=== PATIENT | female | born 1990 | race Caucasian/White ===

== ENCOUNTER 2016-07-26 07:19 | Emergency (ER) | payer BC, OTHER ==
[~2016-07-26] VITALS: Ht 154.9 cm; Wt 86.1 kg
[~2016-07-26 07:19] MED LIST: ALBUAER2 INH; ETON1IMP2 INTRAD; FLNIN/ NAE; ONDA4TAB46 PO; OXYC-57 PO
[2016-07-26 07:25] VITALS: TEMP 37.2; Ht 154.9 cm; Wt 86.1 kg
[2016-07-26] MEDS ORDERED: SODIUM CHLORIDE 0.9% 1000ML 1,000 ML IV STA (07:54)
[2016-07-26] MEDS ORDERED: KETOROLAC TROMETHAMINE 30 MG/ML VIAL IV STA (07:54)
[2016-07-26] MEDS ORDERED: ONDANSETRON INJ 2 MG/ML 2 ML VIAL IV STA (07:54)
[2016-07-26] MEDS ORDERED: HYDROmorphone INJ 1 MG/ML SYR IV STA (07:54)
[2016-07-26 08:08] LABS: BASO % 1.2 %; BASO ABS # 0.07 K/uL (0-0.2); COMPLETE YES; EOS % 2.9 %; HEMATOCRIT 41.5 % (37-47); IG% 0.2 %; LYMPH ABS # 2.37 K/uL (1.2-3.4); MEAN CELL VOLUME 88.5 fL (80-100); MEAN CORPUSCULAR HEMOGLOBIN 30.9 pg (25-34); MEAN CORPUSCULAR HGB CONC 34.9 g/dl (32-36); MEAN PLATELET VOLUME 10.1 fL (7.4-10.4); MONO % 5.2 %; NEUT % 50.5 %; PLATELET COUNT 310 K/uL (130-400); RED BLOOD COUNT 4.69 M/uL (4.2-5.4); WHITE BLOOD COUNT 5.93 K/uL (4.8-10.8)
[2016-07-26 08:13] LABS: URINE APPEARANCE CLEAR (CLEAR); URINE BILIRUBIN NEG (NEG); URINE COLOR YELLOW; URINE EPITHELIAL CELL AUTO >30 /lpf (0-5); URINE NITRITE NEG (NEG); URINE PH 6.5 (4.5-7.5); URINE SPECIFIC GRAVITY 1.023 (1.000-1.030); UROBILINOGEN NEG (NEG)
[2016-07-26 08:14] LABS: MANUAL MICROSCOPIC REQUIRED? NO; REVIEW REQ? NO
[2016-07-26] MEDS ORDERED: CEFTRIAXONE SOD INJ 1 GM ADDVIAL IV STA (08:16)
[2016-07-26 08:37] LABS: ALKALINE PHOSPHATASE 64 U/L (45-117); ALT/SGPT 22 U/L (12-78); AST/SGOT 20 U/L (15-37); BLOOD UREA NITROGEN 15 mg/dl (7-18); BUN/CREATININE RATIO 19.9 (10-20); CALCIUM 9.4 mg/dl (8.5-10.1); CARBON DIOXIDE 20 mmol/L (21-32); CHLORIDE 109 mmol/L (98-107); CREATININE 0.75 mg/dl (0.60-1.20); GLUCOSE 91 mg/dl (70-99); POTASSIUM 4.2 mmol/L (3.5-5.1); SODIUM 141 mmol/L (136-145)
--- NOTE | 2016-07-26 08:59 | DIAGNOSTIC IMAGING REPORT ---
KUB CLINICAL HISTORY: Left flank pain COMPARISON STUDY: 10/11/2015 FINDINGS: There is no pathologic bowel dilatation. There is 2 mm calcification projected over the lower pole the left kidney suspicious for a calculus. IMPRESSION: 1. Suspected 2 mm lower pole left renal calculus 2. No evidence of pathologic bowel dilatation Electronically signed by: Manuel Alaniz M.D. 07/26/2016 8:58 AM Dictated Date/Time: 07/26/2016 8:57 AM
--- NOTE | 2016-07-26 09:29 | DIAGNOSTIC IMAGING REPORT ---
EXAMINATION: RENAL ULTRASOUND CLINICAL HISTORY: Left flank pain COMPARISON STUDY: 10/11/2015, KUB dated 07/26/2016 FINDINGS: The right kidney measures 11 cm. The left kidney measures 11.7 cm. There is no evidence of hydronephrosis. No renal masses are visualized. There is a 3 mm echogenic focus within the lower pole of the left kidney suspicious for a calculus. No bladder abnormalities are visualized. Bilateral ureteral jets were visualized. IMPRESSION : Suspected 3 mm lower pole left renal calculus. No evidence of hydronephrosis. Electronically signed by: Manuel Alaniz M.D. 07/26/2016 9:27 AM Dictated Date/Time: 07/26/2016 9:26 AM
[2016-07-26] MEDS ORDERED: CEFTRIAXONE SOD INJ 1 GM ADDVIAL ONE (10:22)
[2016-07-26] MEDS ORDERED: SULF800T23 PO (10:28)
[2016-07-26] MEDS ORDERED: OXYC-57 PO (10:28)
[2016-07-26 12:15] VITALS: BP 114/70; PULSE 65; O2SAT 100
--- NOTE | 2016-07-26 16:13 | EMERGENCY ROOM VISIT NOTE ---
History Report prepared by Puma: Christelle Garza Under the Supervision of: Dr. Alirio Newton M.D. First contact with patient: 07:24 Chief Complaint: ABDOMINAL PAIN Stated Complaint: POSSIBLE APENDICITIS/INFECTION,BLEEDING Nursing Triage Summary: Pt c/o lower abd pain that began on left and is now to the right. "occasional nausea, slight diarrhea, no vomiting" Pt also states she has vaginal bleeding "brown tinges" and doesn't believe it's her period because she has the Nexplonon and last period was in January. States bleeding only comes with the cramping pain in her abdomen. Symptoms x 1 week. History of Present Illness The patient is a 25 year old female who presents to the Emergency Room with complaints of persistent pain to her lower left abdominal quadrant over the past week. Currently, she rates her discomfort as a 6/10, which increases with palpation of the area. Since the time of onset, the patient's pain has intermittently radiated across to her periumbilical region, as well as her lower right abdominal quadrant, but the pain has most persistently been in her lower left quadrant. She also notes becoming intermittently nauseous and has passed a few movements of diarrhea, but she denies fevers, chills, dysuria, hematuria, increased urgency/frequency of urination, hematochezia, or melena. She also denies chest pain or feeling short of breath. Patient states that she began having brown tinged vaginal spotting over the past 2 days, which is not normal for her as she currently has a Nexplanon implant, and her last LNMP was in January. Patient also notes discomfort to her left flank. She does have history of kidney stones but she states that her symptoms over this past week have not been consistent with what she experienced at that time. Source of History: patient Onset: over the past week Position: abdomen (LLQ) Symptom Intensity: 6/10 Timing: other (persistent) Modifying Factors (Worsening): other (palpation) Associated Symptoms: + abdominal pain, + diarrhea, + nausea, No SOB, No chest pain, No chills, No fevers, No hematochezia, No melena, No urinary symptoms, No vomiting Note: Patient has had brown tinged vaginal spotting x 2 days. Review of Systems See HPI for pertinent positives & negatives. A total of 10 systems reviewed and were otherwise negative. Past Medical & Surgical Medical Problems: (1) Asthma (2) CALCULUS OF KIDNEY (3) OVARIAN CYST NEC/NOS (4) Pneumonia (5) PNEUMONIA, ORGANISM NOS Family History Heart disease Social History Smoking Status: Never Smoker Alcohol Use: occasionally Drug Use: none Marital Status: single Housing Status: lives with family Occupation Status: employed Current/Historical Medications Scheduled Etonogestrel (Nexplanon), 68 MG INTRAD UD Sulfa/Trimethoprim (Bactrim Ds 800MG/160MG), 1 TAB PO BID Scheduled PRN Albuterol (Ventolin Hfa), 2 PUFFS INH Q4H PRN for Shortness of Breath Fluticasone Propionate (Fluticasone Propionate), 1 SPRAY RITA DAILY PRN for Allergies Ondansetron Hcl (Zofran), 4 MG PO PRN UD PRN for Nausea Oxycodone/Acetaminophen 5MG/325MG (Percocet 5MG/325MG), 1 TABLET PO PRN UD PRN for Pain Oxycodone/Acetaminophen 5MG/325MG (Percocet 5MG/325MG), 1-2 TAB PO Q4H PRN for Pain Allergies Coded Allergies: Latex1 -Allergic Contact Dermititis (Verified Allergy, Mild, RASH, 07/26/16 ) ITCHING Physical Exam Vital Signs Date Time Temp Pulse Resp B/P Pulse Ox O2 Delivery O2 Flow Rate FiO2 07/26/16 12:15 65 14 114/70 100 07/26/16 09:57 76 14 120/80 95 Room Air 07/26/16 08:30 85 16 100/59 98 Room Air 07/26/16 07:25 37.2 88 17 104/67 97 Room Air Physical Exam GENERAL: Patient is a healthy-appearing well-nourished 25 year old female. No acute distress. HEAD: Normocephalic atraumatic EYES: Ocular movements intact pupils equal and react to light OROPHARYNX mucous membranes are moist no exudates present no erythema or edema present NECK: Supple no nuchal rigidity CHEST: Good equal expansion LUNGS: Clear and equal to auscultation CARDIAC: Normal S1 and S2 ABDOMEN: Tender to palpation of the left lower quadrant. PELVIC: Brown discharge in the vaginal vault. No evidence of chandelier sign. No evidence of tears or abrasions. Mild adnexal tenderness. BACK: No CVA tenderness EXTREMITIES: No pain upon palpation normal muscle strength in all groups no clubbing cyanosis or edema NEURO: Patient is following commands is answering questions appropriately. Alert and oriented x3 Cranial Nerves 2-12 grossly intact Medical Decision & Procedures ER Provider Diagnostic Interpretation: US results as stated below per my review and radiologist interpretation: X-ray results as stated below per interpretation by me and the radiologist: EXAMINATION: RENAL ULTRASOUND CLINICAL HISTORY: Left flank pain COMPARISON STUDY: 10/11/2015, KUB dated 07/26/2016 FINDINGS: The right kidney measures 11 cm. The left kidney measures 11.7 cm. There is no evidence of hydronephrosis. No renal masses are visualized. There is a 3 mm echogenic focus within the lower pole of the left kidney suspicious for a calculus. No bladder abnormalities are visualized. Bilateral ureteral jets were visualized. IMPRESSION : Suspected 3 mm lower pole left renal calculus. No evidence of hydronephrosis. Electronically signed by: Manuel Alaniz M.D. 07/26/2016 9:27 AM Dictated Date/Time: 07/26/2016 9:26 AM KUB CLINICAL HISTORY: Left flank pain COMPARISON STUDY: 10/11/2015 FINDINGS: There is no pathologic bowel dilatation. There is 2 mm calcification projected over the lower pole the left kidney suspicious for a calculus. IMPRESSION: 1. Suspected 2 mm lower pole left renal calculus 2. No evidence of pathologic bowel dilatation Electronically signed by: Manuel Alaniz M.D. 07/26/2016 8:58 AM Dictated Date/Time: 07/26/2016 8:57 AM Laboratory Results 07/26/16 07:50 Red Blood Count 4.69, Mean Corpuscular Volume 88.5, Mean Corpuscular Hemoglobin 30.9, Mean Corpuscular Hemoglobin Concent 34.9, Mean Platelet Volume 10.1, Neutrophils (%) (Auto) 50.5, Lymphocytes (%) (Auto) 40.0, Monocytes (%) (Auto) 5.2, Eosinophils (%) (Auto) 2.9, Basophils (%) (Auto) 1.2, Neutrophils # (Auto) 3.00, Lymphocytes # (Auto) 2.37, Monocytes # (Auto) 0.31, Eosinophils # (Auto) 0.17, Basophils # (Auto) 0.07 07/26/16 07:50 Test 07/26/16 07:50 07/26/16 10:18 White Blood Count 5.93 K/uL (4.8-10.8) Red Blood Count 4.69 M/uL (4.2-5.4) Hemoglobin 14.5 g/dL (12.0-16.0) Hematocrit 41.5 % (37-47) Mean Corpuscular Volume 88.5 fL (80-100) Mean Corpuscular Hemoglobin 30.9 pg (25-34) Mean Corpuscular Hemoglobin Concent 34.9 g/dl (32-36) Platelet Count 310 K/uL (130-400) Mean Platelet Volume 10.1 fL (7.4-10.4) Neutrophils (%) (Auto) 50.5 % Lymphocytes (%) (Auto) 40.0 % Monocytes (%) (Auto) 5.2 % Eosinophils (%) (Auto) 2.9 % Basophils (%) (Auto) 1.2 % Neutrophils # (Auto) 3.00 K/uL (1.4-6.5) Lymphocytes # (Auto) 2.37 K/uL (1.2-3.4) Monocytes # (Auto) 0.31 K/uL (0.11-0.59) Eosinophils # (Auto) 0.17 K/uL (0-0.5) Basophils # (Auto) 0.07 K/uL (0-0.2) RDW Standard Deviation 38.7 fL (36.4-46.3) RDW Coefficient of Variation 12.2 % (11.5-14.5) Immature Granulocyte % (Auto) 0.2 % Immature Granulocyte # (Auto) 0.01 K/uL (0.00-0.02) Urine Color YELLOW Urine Appearance CLEAR (CLEAR) Urine pH 6.5 (4.5-7.5) Urine Specific [place] 1.023 (1.000-1.030) Urine Protein NEG (NEG) Urine Glucose (UA) NEG (NEG) Urine Ketones NEG (NEG) Urine Occult Blood 2+ (NEG) Urine Nitrite NEG (NEG) Urine Bilirubin NEG (NEG) Urine Urobilinogen NEG (NEG) Urine Leukocyte Esterase TRACE (NEG) Urine WBC (Auto) 1-5 /hpf (0-5) Urine RBC (Auto) 0-4 /hpf (0-4) Urine Hyaline Casts (Auto) 1-5 /lpf (0-5) Urine Epithelial Cells (Auto) >30 /lpf (0-5) Urine Bacteria (Auto) NEG (NEG) Urine Test NEG (NEG) Anion Gap 12.0 mmol/L (3-11) Est Creatinine Clear Calc Drug Dose 115.2 ml/min Estimated GFR () 129.3 Estimated GFR (Non- 111.6 BUN/Creatinine Ratio 19.9 (10-20) Calcium Level 9.4 mg/dl (8.5-10.1) Total Bilirubin 0.3 mg/dl (0.2-1) Direct Bilirubin mg/dl (0-0.2) Aspartate Amino Transf (AST/SGOT) 20 U/L (15-37) Alanine Aminotransferase (ALT/SGPT) 22 U/L (12-78) Alkaline Phosphatase 64 U/L (45-117) Total Protein 8.0 gm/dl (6.4-8.2) Albumin 4.1 gm/dl (3.4-5.0) Lipase 98 U/L (73-393) Chemistry Specimen Hemolysis Labs reviewed by ED physician. Medications Administered Medications (Trade) Dose Ordered Sig/Romeo Route Start Time Stop Time Status Last Admin Dose Admin Sodium Chloride (Nss 1000ml) 1,000 ml @ 999 mls/hr Q1H1M STAT IV 07/26/16 07:54 07/26/16 08:54 DC 07/26/16 08:18 999 MLS/HR Ketorolac Tromethamine (Toradol Inj) 30 mg NOW STAT IV 07/26/16 07:54 07/26/16 07:56 DC 07/26/16 08:17 30 MG Hydromorphone HCl (Dilaudid Inj) 1 mg NOW STAT IV 07/26/16 07:54 07/26/16 07:56 DC 07/26/16 08:18 1 MG Ondansetron HCl (Zofran Inj) 4 mg NOW STAT IV 07/26/16 07:54 07/26/16 07:56 DC 07/26/16 08:18 4 MG Ceftriaxone Sodium (Rocephin Inj) 1 gm STK-MED ONCE .ROUTE 07/26/16 10:22 07/26/16 10:23 DC 07/26/16 10:25 1 GM ED Course 0730: Past medical records reviewed. The patient was evaluated in room B12. A complete history and physical examination was performed. 0745: Zofran 4 mg IV, Dilaudid 1 mg IV, Toradol 30 mg IV and NSS bolus IV were ordered. 0816: Rocephin 1 gm IV was ordered. 1000: Upon reevaluation, the patient was doing well and appeared to be resting more comfortably after receiving the medications. I discussed the results of her radiology reports and lab tests with her. She agreed to have a pelvic exam. 1010: A pelvic exam was preformed. Patient tolerated this well. 1022: I discussed the results of my findings with the patient. Rocephin 1 gm Route was ordered. Additional discharge instructions were also ordered. She verbalized her understanding and agreement with the treatment plan, and she is now ready for disposition. Medical Decision Etiologies such as appendicitis, diverticulitis, PUD, biliary pathology, UTI, pancreatitis, obstruction, mesenteric ischemia, aortic pathology, infections, inflammatory bowel disease, renal colic, as well as others were entertained. This is a 25-year-old female who presents emergency department complaining of left-sided flank pain. The patient has a very benign abdominal examination. Serial abdominal examinations were performed on the patient in the emergency department and at no time did she exhibit a surgical abdomen. Based on the patient's past medical history as well as where the patient is having pain she was sent for an ultrasound which did not show any evidence of kidney stones. An IV was established, the patient given normal saline bolus, Dilaudid, Toradol , Zofran. Repeat examination revealed improvement patient's symptoms. As we did not have a good expiration the patient's pain the patient did have a pelvic exam performed. This showed bloody discharged. The patient is not . I am going to start the patient on Bactrim for urinary tract infection pending culture results. The patient was also given pain medication for home. Patient was in agreement with the treatment plan. Impression Primary Impression: Left flank pain Scribe Attestation The scribe's documentation has been prepared under my direction and personally reviewed by me in its entirety. I confirm that the note above accurately reflects all work, treatment, procedures, and medical decision making performed by me. Departure Information Dispostion Home / Self-Care Prescriptions Sulfa/Trimethoprim (Bactrim Ds 800MG/160MG) Tab 1 TAB PO BID for 10 Days, #20 TAB Prov: Alirio Newton MD 07/26/16 Oxycodone/Acetaminophen 5MG/325MG (PERCOCET 5MG/325MG) Tab 1-2 TAB PO Q4H Y for Pain, #14 TAB Prov: Alirio Newton MD 07/26/16 Referrals Jose Elias Morillo M.D. (PCP) Forms HOME CARE DOCUMENTATION FORM, IMPORTANT VISIT INFORMATION Patient Instructions My [facility] Additional Instructions You received narcotic or benzodiazepene medication while in the emergency room today. Do not drive, operate heavy machinery, or drink alcohol under the influence of this medication. Take 600 mg Ibuprofen every 6 hours Take Percocet for breakthrough pain Culture results are usually available in approx 48 hours You have been examined and treated today on an emergency basis only. This is not a substitute for, or an effort to provide, complete comprehensive medical care. It is impossible to recognize and treat all injuries or illnesses in a single emergency department visit. It is therefore important that you follow up closely with Dr Morillo. Call as soon as possible for an appointment. Thank you for your time and consideration. I look forward to speaking with you again soon. Please don't hesitate to call us if you have any questions.
[2016-07-28 14:03] LABS: CHLAMYDIA TRACH RNA*** NOT DETECTED (NOT DETECTED); GC (NEIS GONORRHOEAE)RNA** NOT DETECTED (NOT DETECTED)
== END 2016-07-26 12:18 | disposition home or self-care (01) ==
LOC: C.EDB 07:20
DX: R10.32 Left lower quadrant pain (principal); N39.0 Urinary tract infection, site not specified; J45.909 Unspecified asthma, uncomplicated

== ENCOUNTER 2016-08-17 11:36 | Emergency (ER) | payer BC ==
[~2016-08-17] VITALS: Ht 154.9 cm; Wt 86.5 kg
[2016-08-17 11:43] VITALS: TEMP 36.9; Ht 154.9 cm; Wt 86.5 kg
[2016-08-17] MEDS ORDERED: DiphenhydrAMINE HCL 50 MG/ML VIAL IV STA (12:06)
[2016-08-17] MEDS ORDERED: KETOROLAC TROMETHAMINE 30 MG/ML VIAL IV STA (12:06)
[2016-08-17] MEDS ORDERED: SODIUM CHLORIDE 0.9% 1000ML 1,000 ML IV STA ×2 (12:06)
[2016-08-17] MEDS ORDERED: ONDANSETRON INJ 2 MG/ML 2 ML VIAL IV STA (12:06)
[2016-08-17] MEDS ORDERED: PROCHLORPERAZINE 5 MG/ML 2 ML VIAL IV STA (12:06)
[2016-08-17 12:28] LABS: BASO % 0.7 %; BASO ABS # 0.05 K/uL (0-0.2); COMPLETE YES; EOS % 3.2 %; HEMATOCRIT 38.9 % (37-47); IG% 0.1 %; LYMPH % 35.8 %; LYMPH ABS # 2.44 K/uL (1.2-3.4); MEAN CELL VOLUME 88.8 fL (80-100); MEAN CORPUSCULAR HEMOGLOBIN 30.1 pg (25-34); MEAN CORPUSCULAR HGB CONC 33.9 g/dl (32-36); MEAN PLATELET VOLUME 10.1 fL (7.4-10.4); MONO % 5.7 %; NEUT % 54.5 %; PLATELET COUNT 280 K/uL (130-400); RED BLOOD COUNT 4.38 M/uL (4.2-5.4); WHITE BLOOD COUNT 6.81 K/uL (4.8-10.8)
[2016-08-17 12:37] LABS: URINE APPEARANCE CLEAR (CLEAR); URINE BILIRUBIN NEG (NEG); URINE COLOR YELLOW; URINE EPITHELIAL CELL AUTO 20-30 /lpf (0-5); URINE NITRITE NEG (NEG); UROBILINOGEN NEG (NEG)
[2016-08-17 12:42] LABS: MANUAL MICROSCOPIC REQUIRED? NO; REVIEW REQ? NO
[2016-08-17 13:28] LABS: BUN/CREATININE RATIO 15.5 (10-20); CALCIUM 8.7 mg/dl (8.5-10.1); CREATININE 0.74 mg/dl (0.60-1.20); POTASSIUM 4.2 mmol/L (3.5-5.1)
[2016-08-17 13:29] LABS: PARTIAL THROMBOPLASTIN RATIO 1.1; PROTHROMBIN TIME (PATIENT) 10.9 SECONDS (9.0-12.0)
[2016-08-17] MEDS ORDERED: OPTIRAY 320 IV PRN (14:00)
--- NOTE | 2016-08-17 14:52 | DIAGNOSTIC IMAGING REPORT ---
ABDOMEN AND PELVIS CT WITH IV CONTRAST CT DOSE: 675.52 mGy.cm HISTORY: Pain EVAL LEFT ABD PAIN TECHNIQUE: Multiaxial CT images of the abdomen and pelvis were performed following the use of intravenous contrast. COMPARISON STUDY: 10/21/2009. FINDINGS: unchanging small nodule left base. Lung bases are clear of acute infiltrate. Liver spleen and pancreas are unremarkable. Kidneys negative for hydronephrosis. Bowel pattern is nonobstructive. Bladder is midline. There are no contained calcifications. Uterus is anteflexed. No free fluid within the pelvic cul-de-sac. The appendix is normal. IMPRESSION: No acute process of the abdomen or pelvis Electronically signed by: Og Mg M.D. 08/17/2016 2:51 PM Dictated Date/Time: 08/17/2016 2:48 PM
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
[2016-08-17 15:17] VITALS: BP 128/72; PULSE 83; O2SAT 96
== END 2016-08-17 15:19 | disposition home or self-care (01) ==
LOC: C.EDB 11:37 → C.EDA 15:19
DX: R10.9 Unspecified abdominal pain (principal); R51 Headache; R11.2 Nausea with vomiting, unspecified

== ENCOUNTER 2017-01-06 19:44 | Emergency (ER) | payer BC ==
[~2017-01-06] VITALS: Ht 154.9 cm; Wt 87.8 kg
[2017-01-06 20:08] VITALS: TEMP 37.3; Ht 154.9 cm; Wt 87.8 kg
[2017-01-06] MEDS ORDERED: AMOX875T PO (20:43)
[2017-01-06] MEDS ORDERED: METHYLPREDNISOLONE 125 MG VIAL IV STA (20:44)
[2017-01-06] MEDS ORDERED: KETOROLAC TROMETHAMINE 30 MG/ML VIAL IV STA (20:44)
[2017-01-06] MEDS ORDERED: SODIUM CHLORIDE 0.9% 1000ML 1,000 ML IV ONE (20:45)
[2017-01-06 21:12] LABS: BASO % 0.4 %; BASO ABS # 0.04 K/uL (0-0.2); COMPLETE YES; EOS % 2.6 %; HEMATOCRIT 40.8 % (37-47); IG% 0.1 %; LYMPH % 27.2 %; LYMPH ABS # 2.74 K/uL (1.2-3.4); MEAN CELL VOLUME 90.9 fL (80-100); MEAN CORPUSCULAR HEMOGLOBIN 30.5 pg (25-34); MEAN CORPUSCULAR HGB CONC 33.6 g/dl (32-36); MEAN PLATELET VOLUME 9.8 fL (7.4-10.4); MONO % 7.6 %; NEUT % 62.1 %; PLATELET COUNT 291 K/uL (130-400); RED BLOOD COUNT 4.49 M/uL (4.2-5.4); WHITE BLOOD COUNT 10.06 K/uL (4.8-10.8)
[2017-01-06 21:30] LABS: BUN/CREATININE RATIO 14.6 (10-20); CALCIUM 9.1 mg/dl (8.5-10.1); CREATININE 0.9 mg/dl (0.60-1.20); POTASSIUM 3.7 mmol/L (3.5-5.1)
[2017-01-06 21:33] LABS: ALB/GLOB RATIO 0.9 (0.9-2)
[2017-01-06] MEDS ORDERED: PRED50TA PO (21:49)
[2017-01-06 22:00] VITALS: BP 106/71; PULSE 97; O2SAT 98
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
== END 2017-01-06 22:01 | disposition home or self-care (01) ==
LOC: C.EDB 19:45 → C.EDC 22:01
DX: J02.9 Acute pharyngitis, unspecified (principal); J45.909 Unspecified asthma, uncomplicated; Z87.442 Personal history of urinary calculi

== ENCOUNTER 2017-05-10 10:06 | Emergency (ER) | payer BC ==
[~2017-05-10] VITALS: Ht 154.9 cm; Wt 87.1 kg
[~2017-05-10 10:06] MED LIST changes: -ALBUAER2 INH; +AMOX875T PO; -ETON1IMP2 INTRAD; -FLNIN/ NAE; -ONDA4TAB46 PO; -OXYC-57 PO
[2017-05-10 10:13] VITALS: TEMP 37.1; Ht 154.9 cm; Wt 87.1 kg
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
[2017-05-10 10:42] LABS: BASO % 0.8 %; BASO ABS # 0.05 K/uL (0-0.2); COMPLETE YES; EOS % 3.9 %; HEMATOCRIT 41.8 % (37-47); IG% 0.2 %; LYMPH % 48.5 %; LYMPH ABS # 2.97 K/uL (1.2-3.4); MEAN CELL VOLUME 88.7 fL (80-100); MEAN CORPUSCULAR HEMOGLOBIN 29.5 pg (25-34); MEAN CORPUSCULAR HGB CONC 33.3 g/dl (32-36); MEAN PLATELET VOLUME 9.7 fL (7.4-10.4); MONO % 6.4 %; NEUT % 40.2 %; PLATELET COUNT 330 K/uL (130-400); RED BLOOD COUNT 4.71 M/uL (4.2-5.4); WHITE BLOOD COUNT 6.13 K/uL (4.8-10.8)
[2017-05-10 10:51] LABS: URINE APPEARANCE CLOUDY (CLEAR); URINE BILIRUBIN NEG (NEG); URINE COLOR YELLOW; URINE EPITHELIAL CELL AUTO >30 /lpf (0-5); URINE NITRITE NEG (NEG); URINE PH 8.5 (4.5-7.5); URINE SPECIFIC GRAVITY 1.022 (1.000-1.030); UROBILINOGEN NEG (NEG)
[2017-05-10 10:52] LABS: PREG INTERNAL NEGATIVE QC NEG CLEAR BACKGROUND; PREG INTERNAL POSITIVE QC POS CONTROL LINE
[2017-05-10 10:58] LABS: MANUAL MICROSCOPIC REQUIRED? NO; REVIEW REQ? YES
[2017-05-10 11:06] LABS: ALT/SGPT 22 U/L (12-78); AST/SGOT 11 U/L (15-37); BLOOD UREA NITROGEN 13 mg/dl (7-18); BUN/CREATININE RATIO 19.6 (10-20); CALCIUM 8.9 mg/dl (8.5-10.1); CARBON DIOXIDE 23 mmol/L (21-32); CHLORIDE 108 mmol/L (98-107); CREATININE 0.68 mg/dl (0.60-1.20); GLUCOSE 89 mg/dl (70-99); SODIUM 139 mmol/L (136-145)
[2017-05-10 11:09] LABS: ALKALINE PHOSPHATASE 72 U/L (45-117)
--- NOTE | 2017-05-10 11:09 | DIAGNOSTIC IMAGING REPORT ---
KUB CLINICAL HISTORY: ABDOMINAL PAIN/GI pain. Nausea. COMPARISON STUDY: No previous studies for comparison. FINDINGS: The soft tissues, psoas shadows, renal outlines and intestinal gas pattern appear normal. There is no evidence for bowel obstruction. No abnormal abdominal calcifications are seen. IMPRESSION: Normal study. The above report was generated using voice recognition software. It may contain grammatical, syntax or spelling errors. Electronically signed by: Og Mg M.D. 05/10/2017 11:07 AM Dictated Date/Time: 05/10/2017 11:07 AM
[2017-05-10 11:15] VITALS: BP 115/72; PULSE 78; O2SAT 98
--- NOTE | 2017-05-10 11:17 | DIAGNOSTIC IMAGING REPORT ---
(RENAL)RETROPERITON COMP HISTORY: Flank pain left flank pain COMPARISON: 07/26/2016 FINDINGS: Right kidney: Maximum dimension 11.4 cm. No evidence for hydronephrosis. Normal corticomedullary differentiation and cortical thickness. Left kidney: Maximum dimension 11.8 cm. 4 mm nonobstructing lower pole calcification. No evidence for hydronephrosis. Normal corticomedullary differentiation and cortical thickness. Bladder: No bladder wall thickening. The bilateral ureteral jets were identified. IMPRESSION: 4 mm nonobstructing lower pole calcification left kidney. Otherwise negative study. The above report was generated using voice recognition software. It may contain grammatical, syntax or spelling errors. Electronically signed by: Og Mg M.D. 05/10/2017 11:16 AM Dictated Date/Time: 05/10/2017 11:15 AM
[2017-05-10] MEDS ORDERED: NITROFURANTOIN MONOHYDRATE 100 MG CAP PO ONE (11:30)
[2017-05-10] MEDS ORDERED: NITR-5 PO (11:33)
== END 2017-05-10 11:46 | disposition home or self-care (01) ==
LOC: C.EDB 10:07 → C.EDA 11:46
DX: R10.32 Left lower quadrant pain (principal); R10.12 Left upper quadrant pain; N39.0 Urinary tract infection, site not specified; Z87.442 Personal history of urinary calculi; J45.909 Unspecified asthma, uncomplicated; N83.209 Unspecified ovarian cyst, unspecified side; Z84.1 Family history of disorders of kidney and ureter; N20.0 Calculus of kidney

== ENCOUNTER 2017-10-22 23:00 | Emergency (ER) | payer BC, OTHER ==
[~2017-10-22] VITALS: Ht 154.9 cm; Wt 92.2 kg
[~2017-10-22 23:00] MED LIST changes: -AMOX875T PO; +NITR-5 PO
[2017-10-22 23:21] VITALS: TEMP 36.9; Ht 154.9 cm; Wt 92.2 kg
[2017-10-22] MEDS ORDERED: METOCLOPRAMIDE HCL INJ 5 MG/ML 2 ML VIAL IV STA (23:36)
[2017-10-22] MEDS ORDERED: SODIUM CHLORIDE 0.9% 1000ML 1,000 ML IV STA (23:36)
[2017-10-22] MEDS ORDERED: KETOROLAC TROMETHAMINE 30 MG/ML VIAL IV STA (23:36)
[2017-10-22] MEDS ORDERED: DiphenhydrAMINE HCL 50 MG/ML VIAL IV STA (23:36)
[2017-10-23 00:05] LABS: BASO % 0.5 %; BASO ABS # 0.06 K/uL (0-0.2); EOS % 2.3 %; HEMATOCRIT 38.1 % (37-47); HEMOGLOBIN 13.1 g/dL (12.0-16.0); IG# 0.01 K/uL (0.00-0.02); LYMPH % 31.9 %; LYMPH ABS # 4.25 K/uL (1.2-3.4); MEAN CELL VOLUME 89.4 fL (80-100); MEAN CORPUSCULAR HEMOGLOBIN 30.8 pg (25-34); MEAN CORPUSCULAR HGB CONC 34.4 g/dl (32-36); MONO % 6.2 %; MONO ABS # 0.82 K/uL (0.11-0.59); NEUT ABS # 7.87 K/uL (1.4-6.5); PLATELET COUNT 292 K/uL (130-400); RED CELL DISTRIBUTION WIDTH CV 12.1 % (11.5-14.5); RED CELL DISTRIBUTION WIDTH SD 39.3 fL (36.4-46.3); WHITE BLOOD COUNT 13.31 K/uL (4.8-10.8)
[2017-10-23] MEDS ORDERED: FLUT0.15 NAE (00:10)
[2017-10-23] MEDS ORDERED: ETON1IMP2 (00:10)
[2017-10-23] MEDS ORDERED: ONDA4TAB46 PO (00:10)
[2017-10-23 00:24] LABS: BLOOD UREA NITROGEN 12 mg/dl (7-18); CREATININE 0.79 mg/dl (0.60-1.20); GLUCOSE 99 mg/dl (70-99)
[2017-10-23 00:25] LABS: ALBUMIN 3.5 gm/dl (3.4-5.0); ALT/SGPT 24 U/L (12-78); CALCIUM 8.6 mg/dl (8.5-10.1); CARBON DIOXIDE 26 mmol/L (21-32); POTASSIUM 3.7 mmol/L (3.5-5.1); SODIUM 139 mmol/L (136-145)
[2017-10-23 00:27] VITALS: O2SAT 99
[2017-10-23 00:27] LABS: ALKALINE PHOSPHATASE 69 U/L (45-117); AST/SGOT 17 U/L (15-37); TOTAL PROTEIN 7.3 gm/dl (6.4-8.2)
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
[2017-10-23 01:17] VITALS: BP 89/57; PULSE 90; O2SAT 95
--- NOTE | 2017-10-23 06:58 | DIAGNOSTIC IMAGING REPORT ---
(RENAL)RETROPERITON COMP HISTORY: 27 years-old Female left flank pain acute left-sided flank pain COMPARISON: Renal ultrasound 05/10/2017, CT 08/17/2016 TECHNIQUE: Multiple real-time sonographic images of the kidneys and bladder were obtained assessing grayscale appearance and color flow FINDINGS: The right kidney measures 10.8 x 3.8 x 4.4 cm with a volume of 95 mL and appears unremarkable without renal calculi, hydronephrosis or focal mass lesion. The left kidney measures 11.1 x 3.8 x 4.0 cm with a volume of 89 mL. Nonobstructing 4 mm calculus is again seen within the inferior pole left kidney. No hydronephrosis. Bladder is partially decompressed and appears unremarkable. IMPRESSION: 1. 4 mm nonobstructing calculus of the inferior pole left kidney. 2. Unremarkable sonographic appearance of the right kidney. 3. Partially decompressed urinary bladder. The above report was generated using voice recognition software. It may contain grammatical, syntax or spelling errors. Electronically signed by: Jf Durán M.D. 10/23/2017 6:57 AM Dictated Date/Time: 10/23/2017 6:55 AM
== END 2017-10-23 01:15 | disposition home or self-care (01) ==
LOC: C.EDB 23:01
DX: R10.9 Unspecified abdominal pain (principal); J45.909 Unspecified asthma, uncomplicated; Z82.49 Family history of ischemic heart disease and other diseases of the circulatory system; Z79.899 Other long term (current) drug therapy

== ENCOUNTER 2021-09-05 22:08 | Observation (INO) ==
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
[2021-09-05 22:47] LABS: Appearance Urine Clear (Clear); Bilirubin Urine Negative (Negative); Blood Urine Negative (Negative); Color Urine Yellow; Glucose Urine UA Negative (Negative); Ketones Urine Negative (Negative); Leukocyte Esterase Urine Negative (Negative); Nitrite Urine Negative (Negative); Protein Urine Negative (Negative); Specific Gravity Urine 1.003 (1.000-1.030); Urobilinogen Urine Negative (Negative)
[2021-09-05 22:57] LABS: Basophils # (auto) 0.04 K/uL (0-0.2); Basophils % (auto) 0.4 %; Eosinophils # (auto) 0.29 K/uL (0-0.5); Eosinophils % (auto) 3.2 %; Hematocrit (blood only) 38.8 % (37-47); Hemoglobin 12.9 g/dL (12.0-16.0); Immature Granulocytes # (auto) 0.01 K/uL (0.00-0.02); Immature Granulocytes % (auto) 0.1 %; Lymphocytes # (auto) 3.05 K/uL (1.2-3.4); Mean Corpuscular Hemoglobin 30.4 pg (25-34); Mean Corpuscular Hgb Conc 33.2 g/dL (32-36); Mean Corpuscular Volume 91.3 fL (80-100); Mean Platelet Volume 9.7 fL (7.4-10.4); Monocytes # (auto) 0.75 K/uL (0.11-0.59); Monocytes % (auto) 8.4 %; Neutrophils # (auto) 4.84 K/uL (1.4-6.5); Neutrophils % (auto) 53.9 %; Platelet Count 307 K/uL (130-400); RDW Coefficient of Variation 12.1 % (11.5-14.5); RDW Standard Deviation 40.5 fL (36.4-46.3); Red Blood Count 4.25 M/uL (4.2-5.4); White Blood Count 8.98 K/uL (4.8-10.8)
[2021-09-05 23:06] LABS: Amphetamines+Metham, Urine Neg (Neg); Barbiturates, Urine Neg (Neg); Benzodiazepine, Urine Neg (Neg); Cocaine, Urine Neg (Neg); MDMA (Ecstacy), Urine Neg (Neg); Methadone, Urine Neg (Neg); Opiate, Urine Neg (Neg); Phencyclidine, Urine Neg (Neg)
[2021-09-05 23:18] LABS: Alanine Aminotransferase 14 U/L (7-52); Albumin Globulin Ratio 1.3 (0.9-2); Alkaline Phosphatase 51 U/L (34-104); Anion Gap 9 (3-11); Aspartate Aminotransferase 13 U/L (13-39); BUN Creatinine Ratio 16.9 (10-20); Bilirubin,Total 0.2 mg/dl (0.2-1.0); Blood Urea Nitrogen 10 mg/dl (6-23); Carbon Dioxide 22 mmol/L (21-32); Chloride 108 mmol/L (98-107); Creatinine Clr Calc Pharmacy 143.8 ml/min; Est GFR (African American) 142.5 ml/min; Globulin 3.1 gm/dl (2.5-4.0); Glucose 113 mg/dl (70-99(Fasting)); Lipase 18 U/L (11-82); Magnesium 1.9 mg/dl (1.7-2.4); Potassium 3.7 mmol/L (3.5-5.1); Sodium 139 mmol/L (136-145); Total Protein 7.1 gm/dl (6.0-8.3)
[2021-09-05 23:19] LABS: Acetaminophen < 3 ug/ml (10-30); Salicylate < 3.0 mg/dl (3.0-30)
[2021-09-05 23:20] LABS: Troponin I < 0.03 ng/ml (0-0.04)
[2021-09-05 23:23] LABS: Pregnancy Test, Serum Negative (Negative)
[2021-09-06] MEDS ORDERED: OPTIRAY 320 100ml IV ONE (00:22)
--- NOTE | 2021-09-06 00:58 | History & Physical Report ---
Date of Service September 06, 2021 Assessment & Plan (1) Confusion: Plan: Mild confusion Multifactorial : Complicated bronchitis, no sepsis Lack of sleep and personal stressors ? EtOH intake Asperger syndrome/Tourette's syndrome as per records Hyperglycemia rule out DM OBS GMF Doxycycline for complicated bronchitis IVF Psych consult in a.m. if patient amenable to discuss personal stressors (Patient refusing for now.) Check hemoglobin A1c DVT prophylaxis per Lovenox subcu Full code Patient friend requesting update from providers. Ms. [place] Eli, contact #[phone]. Text document was generated using [email or web address] recognition software. It may contain grammatical or spelling errors. Kindly contact undersigned for clarification of any documentation item in question. History of Present Illness Chief Complaint: Little confused. Primary Care Provider: Jose Elias Morillo MD History obtained from patient, family, and records. Patient is a fair historian. Medical history significant for Asperger syndrome, Tourette's syndrome, mood disorder, asthma. Patient noted by her friend to be a little confused yesterday. Somewhat forgetful, not able to answer simple questions. Junky cough symptoms without fever, chills. Some shortness of breath without chest pain. Patient not sure about recent COVID-19 contacts given [email or web address] employment. Patient completed COVID-19 vaccination. Patient under a lot of stress at home as per friend. Not sleeping a lot and not eating a lot. Patient denies suicidality. Patient brought to the ER for evaluation. 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 Allergies Allergy/AdvReac Type Severity Reaction Status Date / Time latex Allergy Intermediate RASH Verified 09/05/21 22:52 Home Medications Medication Instructions Recorded Confirmed Type fluoxetine 20 mg capsule 20 mg PO DAILY 11/17/19 09/05/21 History albuterol sulfate 90 mcg/actuation 2 puff INHALATION QID PRN 09/05/21 09/05/21 History aerosol inhaler etonogestrel 68 mg subdermal 68 mg SUBDERMAL CONTINOUS 09/05/21 09/05/21 History implant (Nexplanon) fluticasone propionate 50 2 spray INTRANASAL DAILY 09/05/21 09/05/21 History mcg/actuation nasal spray,suspension ondansetron HCl 4 mg tablet 4 mg PO Q8H PRN 09/05/21 09/05/21 History Past Med/Surg History Medical History (Updated 09/06/21 @ 00:40 by Quintin Pena M.D.) No significant active problems Social History Smoking Status: Smoker, status unknown Feels Safe at Home: Hesitant to Answer Review of Systems Review of Systems: As per HPI, all 10 systems reviewed, all other ROS negative Physical Exam Physical Exam: GENERAL: Slightly anxious, coherent, oriented to month and year, obese, no respiratory distress SKIN: Normal color, warm HEENT: [place] palpebral conjunctivae, no ptosis, dry buccal mucosa NECK : Supple, short neck, no tenderness CHEST : Decreased breath sounds, no tenderness HEART : RRR, no obvious murmurs ABDOMEN: Some distention, nontender EXTREMITIES : Minimal LE swelling, no LE tenderness, no other conspicuous deformities noted NEUROLOGIC : Coherent, oriented to month and year, no facial asymmetry, no other gross focality Results & Data Results & Data ([facility]) Vital Signs (Past 12 Hours) Vital Signs Temp Pulse Pulse Resp BP BP Pulse Ox 09/06/21 00:52 69 18 116/63 97 09/05/21 22:30 96 09/05/21 22:29 86 16 96 09/05/21 22:24 36.6 C 86 16 105/82 98 Laboratory Results Laboratory Results WBC 8.98 K/uL (4.8-10.8) 09/05/21 22:48 RBC 4.25 M/uL (4.2-5.4) 09/05/21 22:48 Hgb 12.9 g/dL (12.0-16.0) 09/05/21 22:48 Hct 38.8 % (37-47) 09/05/21 22:48 MCV 91.3 fL (80-100) 09/05/21 22:48 MCH 30.4 pg (25-34) 09/05/21 22:48 MCHC 33.2 g/dL (32-36) 09/05/21 22:48 RDW Std Deviation 40.5 fL (36.4-46.3) 09/05/21 22:48 RDW Coeff of Mara 12.1 % (11.5-14.5) 09/05/21 22:48 Plt Count 307 K/uL (130-400) 09/05/21 22:48 MPV 9.7 fL (7.4-10.4) 09/05/21 22:48 Immature Gran % (Auto) 0.1 % 09/05/21 22:48 Neut % (Auto) 53.9 % 09/05/21 22:48 Lymph % (Auto) 34.0 % 09/05/21 22:48 [place] % (Auto) 8.4 % 09/05/21 22:48 Eos % (Auto) 3.2 % 09/05/21 22:48 Baso % (Auto) 0.4 % 09/05/21 22:48 Neut # (Auto) 4.84 K/uL (1.4-6.5) 09/05/21 22:48 Lymph # (Auto) 3.05 K/uL (1.2-3.4) 09/05/21 22:48 [place] # (Auto) 0.75 K/uL (0.11-0.59) H 09/05/21 22:48 Eos # (Auto) 0.29 K/uL (0-0.5) 09/05/21 22:48 Baso # (Auto) 0.04 K/uL (0-0.2) 09/05/21 22:48 Immature Gran # (Auto) 0.01 K/uL (0.00-0.02) 09/05/21 22:48 Sodium 139 mmol/L (136-145) 09/05/21 22:48 Potassium 3.7 mmol/L (3.5-5.1) 09/05/21 22:48 Chloride 108 mmol/L (98-107) H 09/05/21 22:48 Carbon Dioxide 22 mmol/L (21-32) 09/05/21 22:48 Anion Gap 9 (3-11) 09/05/21 22:48 BUN 10 mg/dl (6-23) 09/05/21 22:48 Creatinine 0.59 mg/dl (0.6-1.2) L 09/05/21 22:48 Est Cr Clr Drug Dosing 143.8 ml/min 09/05/21 22:48 Est GFR ( Amer) 142.5 ml/min 09/05/21 22:48 Est GFR (Non-Af Amer) 123.0 ml/min 09/05/21 22:48 BUN/Creatinine Ratio 16.9 (10-20) 09/05/21 22:48 Glucose 113 mg/dl (70-99(Fasting)) H 09/05/21 22:48 Calcium 9.0 mg/dl (8.5-10.1) 09/05/21 22:48 Magnesium 1.9 mg/dl (1.7-2.4) 09/05/21 22:48 Total Bilirubin 0.2 mg/dl (0.2-1.0) 09/05/21 22:48 AST 13 U/L (13-39) 09/05/21 22:48 ALT 14 U/L (7-52) 09/05/21 22:48 Alkaline Phosphatase 51 U/L (34-104) 09/05/21 22:48 Ammonia 32.0 umol/L (18-72) 09/05/21 22:48 Troponin I < 0.03 ng/ml (0-0.04) 09/05/21 22:48 Total Protein 7.1 gm/dl (6.0-8.3) 09/05/21 22:48 Albumin 4.0 gm/dl (3.4-5.0) 09/05/21 22:48 Globulin 3.1 gm/dl (2.5-4.0) 09/05/21 22:48 Albumin/Globulin Ratio 1.3 (0.9-2) 09/05/21 22:48 Lipase 18 U/L (11-82) 09/05/21 22:48 TSH 3.527 uIu/ml (0.300-4.500) 09/05/21 22:48 HCG, Qual Negative (Negative) 09/05/21 22:48 Urine Color Yellow 09/05/21 Unknown Urine Appearance Clear (Clear) 09/05/21 Unknown Urine pH 7.0 (4.5-7.5) 09/05/21 Unknown Ur Specific [place] 1.003 (1.000-1.030) 09/05/21 Unknown Urine Protein Negative (Negative) 09/05/21 Unknown Urine Glucose (UA) Negative (Negative) 09/05/21 Unknown Urine Ketones Negative (Negative) 09/05/21 Unknown Urine Blood Negative (Negative) 09/05/21 Unknown Urine Nitrite Negative (Negative) 09/05/21 Unknown Urine Bilirubin Negative (Negative) 09/05/21 Unknown Urine Urobilinogen Negative (Negative) 09/05/21 Unknown Ur Leukocyte Esterase Negative (Negative) 09/05/21 Unknown Salicylates < 3.0 mg/dl (3.0-30) L 09/05/21 22:48 Urine Opiates Screen Neg (Neg) 09/05/21 Unknown Ur Methadone, Qual Neg (Neg) 09/05/21 Unknown Acetaminophen < 3 ug/ml (10-30) L 09/05/21 22:48 Urine Barbiturates Neg (Neg) 09/05/21 Unknown Ur Phencyclidine (PCP) Neg (Neg) 09/05/21 Unknown U Amphetamin/Meth Scrn Neg (Neg) 09/05/21 Unknown MDMA (Ecstasy) Screen Neg (Neg) 09/05/21 Unknown U Benzodiazepines Scrn Neg (Neg) 09/05/21 Unknown Ur Cocaine Metabolite Neg (Neg) 09/05/21 Unknown U Marijuana (THC) Screen Neg (Neg) 09/05/21 Unknown Ethyl Alcohol mg/dL 10.5 mg/dl (<10.0) H 09/05/21 22:48 SARS-CoV-2, RNA, NAAT NEGATIVE (NEGATIVE) 09/05/21 23:[address] head initial read: No intracranial hemorrhage, mass-effect or midline shift. There is no abnormal extra axial fluid collection. No evidence of acute infarct. There is mild mucosal thickening of the ethmoid sinuses. No mastoid effusion. No fracture. CT abdomen pelvis initial read: The solid organs are within normal limits. Normal appendix. No bowel obstruction. No fracture. No acute finding. Chest x-ray as per my interpretation elevated right hemidiaphragm EKG as per my interpretation : Rate 75, NSR, normal axis, no ischemia
[2021-09-06] MEDS ORDERED: MULTI-VITAMIN INFUSION 10 ML, THIAMINE HCL 100 MG, FOLIC ACID 1 MG in SODIUM CHLORIDE 0... IV ONE (01:15)
[2021-09-06] MEDS ORDERED: DOXYCYCLINE HYCLATE 100 MG CAP PO STA (01:17)
[2021-09-06] MEDS ORDERED: ACETAMINOPHEN 325 MG TAB PO PRN (03:06)
[2021-09-06 03:18] LABS: Influenza A virus by PCR Negative (Negative); Influenza B virus by PCR Negative (Negative)
[2021-09-06 06:11] LABS: Basophils # (auto) 0.03 K/uL (0-0.2); Basophils % (auto) 0.4 %; Eosinophils # (auto) 0.26 K/uL (0-0.5); Eosinophils % (auto) 3.2 %; Hematocrit (blood only) 38.2 % (37-47); Hemoglobin 12.4 g/dL (12.0-16.0); Immature Granulocytes # (auto) 0.01 K/uL (0.00-0.02); Immature Granulocytes % (auto) 0.1 %; Lymphocytes # (auto) 3.33 K/uL (1.2-3.4); Lymphocytes % (auto) 40.6 %; Mean Corpuscular Hgb Conc 32.5 g/dL (32-36); Mean Corpuscular Volume 92.5 fL (80-100); Mean Platelet Volume 9.8 fL (7.4-10.4); Monocytes # (auto) 0.64 K/uL (0.11-0.59); Monocytes % (auto) 7.8 %; Neutrophils # (auto) 3.94 K/uL (1.4-6.5); Neutrophils % (auto) 47.9 %; Platelet Count 280 K/uL (130-400); RDW Coefficient of Variation 12.2 % (11.5-14.5); RDW Standard Deviation 41.1 fL (36.4-46.3); Red Blood Count 4.13 M/uL (4.2-5.4); White Blood Count 8.21 K/uL (4.8-10.8)
[2021-09-06 06:34] LABS: BUN Creatinine Ratio 15.3 (10-20); Calcium 8.5 mg/dl (8.5-10.1); Creatinine Clr Calc Pharmacy 141.3 ml/min; Est GFR (African American) 142.5 ml/min; Potassium 3.8 mmol/L (3.5-5.1)
[2021-09-06 07:33] LABS: Estimated Average Glucose 117 mg/dl; Hemoglobin A1C 5.7 % (4.5-5.6)
--- NOTE | 2021-09-06 07:59 | CT Scan Report ---
CT SCAN OF THE ABDOMEN AND PELVIS WITH IV CONTRAST CLINICAL HISTORY: Right flank pain. Change in mental status. COMPARISON STUDY: Abdominal CT dated 11/17/2019. TECHNIQUE: Following the IV administration of 93 cc of Optiray 320, CT scan of the abdomen and pelvi s is performed from the lung bases to the proximal femora. Images are reviewed in the axial, sagittal , and coronal planes. IV contrast was administered without complication. A dose lowering technique wa s utilized adhering to the principles of ALARA. CT DOSE: 982.50 mGy.cm FINDINGS: Lung bases: The heart is normal in size and without pericardial effusion. The lung bases are clear. Liver: The contrast-enhanced liver is normal in size, contour, and attenuation. Fatty infiltration is noted adjacent to the falciform ligament. There is no intrahepatic biliary ductal dilatation. The he patic veins and portal veins are patent. Gallbladder: Unremarkable. Spleen: Normal in size and attenuation. Pancreas: Unremarkable. Adrenal glands: Unremarkable. Kidneys: The contrast enhanced kidneys are normal in size and without hydronephrosis. The kidneys enh ance symmetrically. There is a 3 mm nonobstructing right renal calculus. Abdominal vasculature: The abdominal aorta is normal in course and caliber. Bowel: There is mild to moderate colonic fecal retention. No bowel obstruction is identified. The marj endix is well-visualized and normal. Peritoneum: There is no intraperitoneal free air or abdominal ascites. Lymphadenopathy: None. Pelvic viscera: The bladder, uterus, and adnexa are normal as visualized noting bilateral ovarian fol licles. Trace free fluid is seen in the cul-de-sac. Skeletal structures: No lytic or blastic lesions are seen. There are bilateral pars defects at L5. IMPRESSION: 1. No acute infectious or inflammatory findings are identified in the abdomen or pelvis. 2. Right-sided nephrolithiasis. 3. Trace nonspecific free fluid in the cul-de-sac is likely within physiologic limits. ACT 112: Negative or not required by law. Electronically signed by: Boris Welch M.D. 09/06/2021 7:30 AM
--- NOTE | 2021-09-06 07:59 | CT Scan Report ---
CT SCAN OF THE BRAIN WITHOUT IV CONTRAST CLINICAL HISTORY: Change in mental status. COMPARISON STUDY: CT of the brain dated 03/27/2016 TECHNIQUE: Unenhanced axial CT scan of the brain is performed from the vertex to the skull base. A d ose lowering technique was utilized adhering to the principles of ALARA. CT DOSE: 537.48 mGy.cm FINDINGS: There is prominence of the tonsils and adenoids seen on the ferris wheel operator tomogram. Brain parenchyma: The brain parenchyma is normal in appearance. There is no hemorrhage, mass effect, or evidence of acute territorial ischemia by CT criteria. Gallardo-white matter differentiation is preser stephanie. No extra-axial fluid collection is seen. Ventricles, sulci, cisterns: Normal in configuration. Intracranial vasculature: The visualized intracranial vasculature at the skull base is normal in appe arance. Calvarium: Unremarkable. Soft tissues: A 10 mm sebaceous cyst is noted in the frontal scalp. Sinuses and mastoids: There is moderate mucosal thickening within the ethmoid sinuses. Mild mucosal t hickening is noted in the frontal and sphenoid sinuses. The mastoid air cells are well pneumatized. Orbits: The bony orbits are grossly intact. IMPRESSION: 1. No acute intracranial abnormality is identified. 2. There is prominence of the tonsils and adenoids noted on the ferris wheel operator tomogram. Correlate with direct visualization. ACT 112: Negative or not required by law. Electronically signed by: Boris Welch M.D. 09/06/2021 7:05 AM
--- NOTE | 2021-09-06 08:26 | XRay Report ---
XR chest 1V portable HISTORY: cough COMPARISON: Chest 03/27/2016. FINDINGS: The lungs are clear. Cardiac silhouette is normal in size. No pleural effusions. No pneumot horax. IMPRESSION: No acute process. ACT 112: Negative or not required by law. Electronically signed by: Robert Bryant M.D. 09/06/2021 8:25 AM
[2021-09-06] MEDS: FLUoxetine HCL 20 MG CAP PO SCH (08:46)
[2021-09-06] MEDS: ENOXAPARIN INJ 40 MG/0.4 ML SYR SQ SCH (08:47)
[2021-09-06] MEDS: FLUTICASONE PROPIONATE NA SPR 16 GM BTL SCH (08:48)
--- NOTE | 2021-09-06 11:23 | Electrocardiogram Report ---
Test Reason : Blood Pressure : / mmHG Vent. Rate : 076 BPM Atrial Rate : 076 BPM P-R Int : 144 ms QRS Dur : 090 ms QT Int : 386 ms P-R-T Axes : 043 046 022 degrees QTc Int : 434 ms Normal sinus rhythm Normal ECG When compared with ECG of 27-MAR-2016 23:47, No significant change was found Confirmed by Miguel Zhao ([id number]) on 09/06/2021 11:23:07 AM Referred By: REFERRED SELF Confirmed By:Nathan Zhao
--- NOTE | 2021-09-06 14:00 | CT Scan Report ---
CT head/brain wo con CLINICAL HISTORY: 31 years-old Female with confusion. Acutely altered mental status TECHNIQUE: Multiple axial CT images of the head were obtained without contrast. A dose lowering tech nique was utilized adhering to the principles of ALARA. CT DOSE: 537.48 mGy.cm COMPARISON: Head CT 09/05/2021 FINDINGS: No acute intracranial hemorrhage, midline shift, intracranial mass, hydrocephalus, territorial ischem ia or abnormal extra-axial collection. Motion degraded exam. The calvarium is intact. Adenoid tonsillar enlargement redemonstrated. Mild mucosal thickening of the ethmoid air cells. The mastoid air cells are clear. 11 mm subcutaneous lesion of the midline frontal scalp on image 22 is indeterminate, possibly a sebaceous cyst. IMPRESSION: Motion degraded exam. No acute intracranial abnormality. ACT 112: Negative or not required by law. The above report was generated using voice recognition software. It may contain grammatical, syntax o r spelling errors. Electronically signed by: Tremaine Durán M.D. 09/06/2021 1:58 PM
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
--- NOTE | 2021-09-06 16:34 | Hospitalist Progress Note ---
Date of Service September 06, 2021 Assessment & Plan (1) Confusion: Plan: This is a 31yo F with a PMH of Asperger syndrome, Tourette's syndrome, mood disorder, asthma who presents with intermittent confusion. Mild confusion A&Ox4 but having brief moments of delirium Evaluated by psych today - higher risk for delirium given autism baseline. Unlikely due to trauma. Continue fluoxetine resumed on admission at 20mg daily, plan for outpatient therapy referral CT headwith no acute intracranial abnormality Utox with slightly elevated ethyl alcohol level, otherwise negative. Vitamin B12, TSH, ammonia wnl. UA, CXR, CT abd/pelvis unremarkable. Blood cultures obtained Possible that bronchitis contributing although afebrile - continue doxycycline Continue to monitor Bronchitis Afebrile, CXR unremarkable Continue doxycycline Hgb a1c 5.7 DVT Ppx: SQ lovenox Code status: FULL Dispo: Observation med/surg. Patient seen in collaboration with Dr. Myers. Please see addendum. Patient friend requesting update from providers. Ms. [place] Eli, contact #[phone]. Admission and Anticipated Discharge Date Admission Date: September 06, 2021 Supervising Physician Co-Signing Physician Notes Patient is seen and examined at bedside. Reported nausea earlier today but no vomiting. Admits to having intermittent confusion secondary to stressors in life. Discussed with psychiatry today. Also reports minimal cough. Offers no other complaints. On exam patient is obese, no apparent distress, normocephalic atraumatic, EOMI, normal breath sounds, clear to auscultation, S1-S2, no murmur, no pedal edema, abdomen soft, nontender, normal bowel sounds, alert, awake, oriented, grossly no focal deficits. Agree with continuing doxycycline for bronchitis. Confusion likely secondary to anxiety and depression. Continue fluoxetine. Appreciate psychiatry input. Tox screen negative, CT head no acute process, vitamin B12, TSH normal. Needs follow-up with psychiatry upon discharge. Patient denies any suicidal thoughts. I personally reviewed the record. Patient is interviewed and examined at bedside. Patient's care is coordinated with Albertina Garvey PA-C. Please refer to the documentation above for details of patient's presentation and for discussion of other issues. Subjective Seen and examined in 312-1. Still with moments of intermittent confusion. States that she loses her train of thought and then vision becomes blurry before resolving again. Has been happening intermittently for past 2 weeks. Also continues to experience nasal congestion, cough and chills. Has remained afebrile. No CP, SOB, N/V, abdominal pain, dysuria, diarrhea or constipation. Review of Systems Review of Systems: As per HPI, all 10 systems reviewed, all other ROS negative Physical Exam Physical Exam: Gen: WD/WN, NAD, sitting in bed, obese, A&Ox3 HEENT: Normocephalic, atraumatic, conjunctivae moist, sclerae anicteric, mucous membranes moist Lung: Decreased breath sounds, no wheezes/rales/rhonchi Heart: Regular rate, regular rhythm, no murmurs, rubs, or gallops Abdomen: Soft, NT, ND +BS x 4 Extremities: no edema Skin: Warm, no rash Results & Data Results & Data ([facility]) Vital Signs (Past 12 Hours) Vital Signs Temp Pulse Pulse Resp BP Pulse Ox 09/06/21 16:00 37.1 C 85 18 115/76 98 09/06/21 07:13 36.9 C 73 19 106/65 97 Laboratory Results Short CBC 09/05/21 09/06/21 Range/Units 22:48 05:38 WBC 8.98 8.21 (4.8-10.8) K/uL Hgb 12.9 12.4 (12.0-16.0) g/dL Hct 38.8 38.2 (37-47) % Plt Count 307 280 (130-400) K/uL BMP 09/05/21 09/06/21 22:48 05:38 Sodium 139 140 Potassium 3.7 3.8 Chloride 108 H 111 H Carbon Dioxide 22 22 BUN 10 9 Creatinine 0.59 L 0.59 L Glucose 113 H 92 Calcium 9.0 8.5 Cardiac Enzymes 09/05/21 Range/Units 22:48 Troponin I < 0.03 (0-0.04) ng/ml Liver Function 09/05/21 Range/Units 22:48 Total Bilirubin 0.2 (0.2-1.0) mg/dl AST 13 (13-39) U/L ALT 14 (7-52) U/L Alkaline Phosphatase 51 (34-104) U/L Albumin 4.0 (3.4-5.0) gm/dl Urine 09/05/21 Range/Units Unknown Urine Color Yellow Urine Appearance Clear (Clear) Urine pH 7.0 (4.5-7.5) Ur Specific [place] 1.003 (1.000-1.030) Urine Protein Negative (Negative) Urine Glucose (UA) Negative (Negative)
[2021-09-06] MEDS ORDERED: diphenhydrAMINE Capsule 25 MG CAP PO ONE (20:01)
[2021-09-06] MEDS: DOXYCYCLINE HYCLATE 100 MG CAP PO SCH (20:40)
[2021-09-07 06:16] LABS: Hematocrit (blood only) 39.9 % (37-47); Hemoglobin 12.8 g/dL (12.0-16.0); Mean Corpuscular Hemoglobin 29.8 pg (25-34); Mean Corpuscular Hgb Conc 32.1 g/dL (32-36); Mean Platelet Volume 9.9 fL (7.4-10.4); Platelet Count 294 K/uL (130-400); RDW Coefficient of Variation 12.2 % (11.5-14.5); Red Blood Count 4.29 M/uL (4.2-5.4); White Blood Count 9.35 K/uL (4.8-10.8)
[2021-09-07 06:48] LABS: BUN Creatinine Ratio 14.1 (10-20); Calcium 9.1 mg/dl (8.5-10.1); Creatinine Clr Calc Pharmacy 117.5 ml/min; Est GFR (African American) 132.5 ml/min; Est GFR (Non-African American) 114.3 ml/min; Potassium 3.9 mmol/L (3.5-5.1)
[2021-09-07] MEDS: DOXYCYCLINE HYCLATE 100 MG CAP PO SCH (08:29)
[2021-09-07] MEDS: FLUoxetine HCL 20 MG CAP PO SCH (08:29)
[2021-09-07] MEDS: FLUTICASONE PROPIONATE NA SPR 16 GM BTL SCH (08:29)
[2021-09-07] MEDS: ENOXAPARIN INJ 40 MG/0.4 ML SYR SQ SCH (08:30)
--- NOTE | 2021-09-07 16:14 | Discharge Summary ---
Date of Service September 07, 2021 Admission HPI Per Admitting Provider History obtained from patient, family, and records. Patient is a fair historian. Medical history significant for Asperger syndrome, Tourette's syndrome, mood disorder, asthma. Patient noted by her friend to be a little confused yesterday. Somewhat forgetful, not able to answer simple questions. Junky cough symptoms without fever, chills. Some shortness of breath without chest pain. 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 Patient completed COVID-19 vaccination. Patient under a lot of stress at home as per friend. Not sleeping a lot and not eating a lot. Patient denies suicidality. Patient brought to the ER for evaluation. Medical History as above Surgical History : Pilonidal cyst removal Family History : Asthma, DM, heart disease Personal/Social history : Non-smoker, occasional EtOH intake, hotel employee/sidegig as a urban planner Admission Exam Per Admitting Provider GENERAL: Slightly anxious, coherent, oriented to month and year, obese, no respiratory distress SKIN: Normal color, warm HEENT: [place] palpebral conjunctivae, no ptosis, dry buccal mucosa NECK : Supple, short neck, no tenderness CHEST : Decreased breath sounds, no tenderness HEART : RRR, no obvious murmurs ABDOMEN: Some distention, nontender EXTREMITIES : Minimal LE swelling, no LE tenderness, no other conspicuous deformities noted NEUROLOGIC : Coherent, oriented to month and year, no facial asymmetry, no other gross focality Principal Diagnosis delirium, anxiety, bronchitis Discharge Exam Gen: WD/WN, NAD, sitting in bed, obese, A&Ox3 HEENT: Normocephalic, atraumatic, conjunctivae moist, sclerae anicteric, mucous membranes moist Lung: Decreased breath sounds, no wheezes/rales/rhonchi Heart: Regular rate, regular rhythm, no murmurs, rubs, or gallops Abdomen: Soft, NT, ND +BS x 4 Extremities: no edema Skin: Warm, no rash Discharge Data Allergies Allergy/AdvReac Type Severity Reaction Status Date / Time latex Allergy Intermediate RASH Verified 09/05/21 22:52 Consultations 09/06/21 00:49 ED Decision to Admit Stat 09/06/21 10:59 Consult Psychiatry Routine Ordered Studies 09/05/21 22:37 CT head/brain wo con Urgent 09/05/21 22:45 CT abd pelvis IV con only Urgent 09/06/21 10:59 CT head/brain wo con Routine Hospital Course (1) Delirium due to another medical condition: (2) Autism spectrum disorder: (3) Anxiety: (4) History of OCD (obsessive compulsive disorder): (5) Bronchitis: This is a 31yo F with a PMH of Asperger syndrome, Tourette's syndrome, mood diso rder, asthma who presents with intermittent confusion that has improved. Was A&Ox4 but having brief moments of delirium. CT headwith no acute intracranial abnormality, utox with slightly elevated ethyl alcohol level, otherwise negative. Vitamin B12, TSH, ammonia wnl. UA, CXR, CT abd/pelvis unremarkable. Blood cultures obtained and negative to date. Evaluated by psychiatry who felt patient at higher risk for delirium given autism baseline. Unlikely due to trauma. Resumed fluoxetine on admission at 20mg daily, plan for outpatient psychiatry and therapy referral. Possible that bronchitis contributing although afebrile - continuing doxycycline for 5 day course total. Cough and congestion improved. Patient with difficult social factors at home. Discussed feeling unsafe at her home due to difficult relationship with ex-boyfriend and father so will stay with her mother while figuring out plan. Hemodynamically stable at time of discharge. Total Time Total Time Spent Total Time Spent (In Minutes): 40 Discharge Plan Discharge Items Patient Disposition: Home - Self-Care Reason For Visit: AMS Discharge Diagnosis: delirium, anxiety, bronchitis Activity: Resume your previous activity Non-emergency contact: Primary Care Provider Call non-emergency contact if: you have any medication questions and your symptoms worsen Follow-up/Referrals: Jose Elias Morillo MD [Primary Care Provider] - (Date & Time 09/11/2021 2:40 PM Provider Jose Elias Morillo MD Department Family Practice [facility] ) Diet: Regular Addtl Attending Provider Instructions: You were admitted for concerns regarding confusion that has improved. Per psychiatry evaluation, likely brief episode of delirium in setting of viral URI vs adverse reaction to OTC medication. Has improved with antibiotics, resumed Prozac which she was previously taking. Referral sent for [facility] for outpatient psychiatry - given phone number and instructed to follow up on Friday to schedule intake appointment. MEDICATION CHANGES: Continue doxycycline 100mg twice daily until course is completed. Resumed Prozac 20mg daily. SUMMARY OF TEST RESULTS: CT head without acute intracranial abnormality. RECOMMENDATIONS FOR FOLLOW-UP: Hospital follow up with Dr. Morillo on 09/11/21 at 2:40 PM Call [facility] outpatient psychiatry on Friday (phone number provided) to schedule intake appointment. OTHER INSTRUCTIONS: Seek medical attention if you have: * temperature above 101 * chest pain or trouble breathing * abdominal pain, nausea, vomiting * diarrhea, dark stools or bloody stools * any unanswered questions or concerns Call 911 if symptoms are severe. Please take good care of yourself. Call if you have any questions or problems. You can reach a [facility] hospitalist on duty at [facility] 24 hours a day by calling [phone]. Albertina Garvey PA-C [facility] Hospitalist Pending Studies at Discharge: No Stand-Alone Forms: My [facility], Smoking Cessation Medications and DC Order Prescriptions: New doxycycline hyclate 100 mg Capsule 100 mg PO BID Qty: 8 RF: 0 Continued ondansetron HCl 4 mg Tablet 4 mg PO Q8H PRN (Reason: Nausea) RF: 0 albuterol sulfate 90 mcg/actuation Hfa Aerosol Inhaler 2 puff INHALATION QID PRN (Reason: Shortness Of Breath) RF: 0 fluticasone propionate 50 mcg/actuation [place],Suspension 2 spray INTRANASAL DAILY RF: 0 Nexplanon 68 mg Implant 68 mg SUBDERMAL CONTINOUS RF: 0 fluoxetine 20 mg capsule 20 mg PO DAILY Qty: 30 RF: 0 Discharge Orders: Discharge Order (Routine); Ordered 09/07/21 Ordered By: Albertina Garvey Admission Data Admit Date/Time: 09/06/21 01:41 Attending Provider: Nael Myers Admit Provider: Aubrey Spicer Primary Care Provider: Jose Elias Morillo Other Providers: Albertina Garvey ; Gena Gonzalez ; Jaylin Harper ; Zulema Dickerson ; Jose Elias Montoya Other Interventions: Discharge Summary Assessment (RN) Last Done: 09/07/21 16:23 Supervising Physician Co-Signing Physician Notes Patient is seen and examined at bedside. States feeling better today. Less cough today. Memory much better today. Ambulated in hallway with no issues earlier today. Offers no other complaints. On exam patient is obese, no apparent distress, normocephalic atraumatic, EOMI, normal breath sounds, clear to auscultation, S1-S2, no murmur, no pedal edema, abdomen soft, nontender, normal bowel sounds, alert, awake, oriented, grossly no focal deficits. Continue doxycycline for bronchitis. Confusion likely secondary to anxiety and depression. Continue fluoxetine. Appreciate psychiatry input. Needs follow up with psychiatry upon discharge. I personally reviewed the record. Patient is interviewed and examined at bedside. Patient's care is coordinated with Albertina Garvey PA-C. Please refer to the documentation above for details of patient's presentation and for discussion of other issues.
== END 2021-09-07 17:34 | disposition home or self-care (01) ==
LOC: 3E 22:08 → ED 22:08 → 3E 09-06 01:55